=== PATIENT | female | born 1980 | race Caucasian/White ===

== ENCOUNTER → 2020-12-24 08:34 | Outpatient (CLI) | payer BC, SELFPAY | PROVIDERS: PCP Nurse Practitioner; Visit Provider Nurse Practitioner | DX: G47.10 Hypersomnia, unspecified (principal); R06.83 Snoring; R53.83 Other fatigue; G47.30 Sleep apnea, unspecified | CPT/HCPCS: G0399 ==

== ENCOUNTER 2021-04-26 08:59 | Emergency (ER) | payer BC, SELFPAY ==
[2021-04-26 09:18] VITALS: BP 141/89; PULSE 90; RESP 14; TEMP 36.7; O2SAT 99; BMI 36.0
--- NOTE | 2021-04-26 10:08 | HMH.EDUTC ---
[facility] [place] Clinical Impression: Sinusitis Qualifiers: Sinusitis location: unspecified location Chronicity: acute Recurrence: non-recurrent Qualified Code(s): J01.90 - Acute sinusitis, unspecified Otitis media Qualifiers: Otitis media type: suppurative Chronicity: acute Laterality: bilateral Recurrence: non-recurrent Spontaneous tympanic membrane rupture: without spontaneous rupture Qualified Code(s): H66.003 - Acute suppurative otitis media without spontaneous rupture of ear drum, bilateral Disposition: Home, Self-Care Condition on Discharge: Good Instructions: Middle Ear Infection, DI for Sinusitis Additional Instructions: Drink plenty of fluids. Take tylenol or ibuprofen for pain or fever. Take the medications as directed. Follow up with your regular doctor. GO TO THE ER FOR ANY WORSENING SYMPTOMS Prescriptions: Brompheniramine/Pseudoephed/Dm [Bromfed Dm Cough Syrup] 5 ml PO Q6HP PRN #240 ml PRN Reason: Cough Transmission Status: Received by [id number] methylPREDNISolone [Medrol] 4 mg PO DIRECTED 6 Days #21 packet Transmission Status: Received by [id number] Cefdinir [Omnicef 300mg Capsule] 300 mg PO BID #20 cap Transmission Status: Received by [id number] Referrals: Emelia Adams APRN [Primary Care Provider] - Time of Disposition: 10:14 Medical Decision Making - Medical Records Medical records reviewed: No: I reviewed the patient's medical records. - Rafael Inquiry Pt receiving controlled substance: No Vital Signs: 04/26/21 09:18 04/26/21 10:09 Temperature 98.1 F 98.1 F Temperature Source Oral Pulse Rate 90 Pulse Rate [Left] 90 Respiratory Rate 14 14 Blood Pressure 141/89 H Blood Pressure [Right Arm] 141/89 H Blood Pressure Mean [Right Arm] 106 02 Sat by Pulse Oximetry 99 [facility] [place] - General Stated complaint: headache,congestion Time Seen by Provider: 04/26/21 10:08 Mode of Arrival: Ambulatory Source of Information: Patient Limitations: No Limitations Description of Symptoms (Recalled from Triage Doc. by RN): pt c/o sinus congestion and sneezing. HEENT Symptoms (Recalled from RN notes): Yes (congestion/drainage and sneezing) Resp Symptoms (Recalled from RN notes): No Skin Symptoms (Recalled from RN notes): No MS Symptoms (Recalled from RN notes): No Functional Status (Recalled from RN notes): wnl - History of Present Illness Provider Complaint: She c/o 3 days of sinus congestion. - Related Data Home Medications Medication Instructions Recorded Confirmed ketotifen fumarate 0.025 % (0.035 1 drp OPHTHALMIC BID 09/17/17 %) eye drops loratadine 5 mg/5 mL oral solution 5 mg PO ONCE 09/17/17 Previous Rx's Medication Instructions Recorded gwuvvcomdghdvwn-ivliappbmcouyyx-SG 5 ml PO Q4-6H PRN #240 ml 09/17/17 2 mg-30 mg-10 mg/5 mL oral syrup Brompheniramine/Pseudoephed/Dm 5 ml PO Q6HP PRN #240 ml 04/26/21 [Bromfed Dm Cough Syrup] Cefdinir [Omnicef 300mg Capsule] 300 mg PO BID #20 cap 04/26/21 methylPREDNISolone [Medrol] 4 mg PO DIRECTED 6 Days #21 04/26/21 packet Allergies Allergy/AdvReac Type Severity Reaction Status Date / Time No Known Allergies Allergy Verified 09/17/17 16:35 - Worker's Comp Is this a Worker's Comp case?: No [facility] History - Hepatitis A Screen Drug use history?: No High risk sexual behaviors?: No History of sexually transmitted infection?: No Currently employed?: No Childcare worker?: No Do you have indoor plumbing?: Yes Do you have electricity?: Yes Attestation statement:: This patient has been screened for Hepatitis A risk factors. I have reviewed the patient's past medical history: Yes Other Surgeries: Yes: No Previous Surgery Amputation: No Fractures: No - Social History Smoking Status: Never smoker Alcohol Intake: never Occupational Status: student ROS Obtained: Yes All systems reviewed & no additional complaints - Constitutional Constituti
[2021-04-26 10:09] VITALS: BP 141/89; PULSE 90; RESP 14; TEMP 36.7
== END 2021-04-26 10:22 | disposition home or self-care (01) ==
PROVIDERS: Emergency Provider Nurse Practitioner Family; PCP Nurse Practitioner
DX: J01.90 Acute sinusitis, unspecified (principal); H66.003 Acute suppurative otitis media without spontaneous rupture of ear drum, bilateral
CPT/HCPCS: 99202; G0463

== ENCOUNTER → 2022-08-31 23:11 | Outpatient (CLI) | payer BC, SELFPAY ==
[2022-08-31 18:35] LABS: Eosinophils % 0.5 % (0.1-12.0); Hematocrit 41.4 % (37.0-47.0); Hemoglobin 13.3 g/dL (12.2-16.2); Lymphocytes # 1.6 K/mm3 (0.7-4.5); Lymphocytes % 37.5 % (10-50); Mean Corpuscular HGB Conc 32.3 g/dL (31.8-35.4); Mean Corpuscular Hemoglobin 30.1 pg (27.0-31.2); Mean Corpuscular Volume 93.2 fl (81-99); Monocytes # 0.2 K/mm3 (0.1-1.0); Monocytes % 5.2 % (1.7-9.3); Neutrophils # 2.4 K/mm3 (1.8-7.8); Neutrophils % 55.8 % (37.0-80.0); Platelet Count 231 K/mm3 (142-424); Red Blood Count 4.44 M/mm3 (4.20-5.40); White Blood Count 4.2 K/mm3 (4.8-10.8)
[2022-08-31 18:47] LABS: Alanine Aminotransferase 20 U/L (12-78); Albumin Level 4.3 g/dl (3.5-5.0); Albumin/Globulin Ratio 1.5 (1.1-1.8); Alkaline Phosphatase 50 U/L (38-126); Aspartate Amino Transferase 24 U/L (14-36); Bilirubin,Total 0.5 mg/dl (0.2-1.3); Blood Urea Nitrogen 11 mg/dl (7-17); Calcium 8.5 mg/dl (8.4-10.2); Carbon Dioxide 26 mmol/L (22.0-30.0); Chloride 107 mmol/L (98-107); Chol/HDL Ratio 4.3 (1-3.5); Cholesterol 192 mg/dl (140-200); Estimated Glomerular Filt Rate 79 ml/min (>60); GFR (African American) 95 ML/MIN (>60); Globulin 2.8 g/dL (1.3-3.2); Glucose 85 mg/dl (74-100); HDL Cholesterol 45 mg/dl (40-60); Sodium 140 mmol/L (136-145); Total Protein,Serum 7.1 g/dl (6.3-8.2); Triglycerides 135 mg/dl (30-150); VLDL Cholesterol 27 mg/dL (0-40)
[2022-08-31 18:58] LABS: Direct LDL Cholesterol 108.24 mg/dL (100-129)
[2022-08-31 19:03] LABS: Free T4 (Free Thyroxine) 0.87 ng/dl (0.78-2.19)
[2022-08-31 19:05] LABS: 25-OH Vitamin D, Total 22.3 ng/mL (30-100)
[2022-08-31 19:18] LABS: Thyroid Stimulating Hormone 4.72 uIU/mL (0.465-4.68)
[2022-08-31 19:37] LABS: Vitamin B12 268 pg/mL (239-931)
== END ==
PROVIDERS: PCP Nurse Practitioner; Visit Provider Nurse Practitioner
DX: E03.9 Hypothyroidism, unspecified (principal); E78.5 Hyperlipidemia, unspecified; E66.9 Obesity, unspecified; Z68.33 Body mass index [BMI] 33.0-33.9, adult; E55.9 Vitamin D deficiency, unspecified
CPT/HCPCS: 80053; 80061; 82306; 82607; 83036; 84439; 84443; 85025

== ENCOUNTER 2025-01-24 14:59 | Outpatient (CLI) | payer BC, SELFPAY ==
[2025-01-24 19:56] LABS: Hematocrit 36.9 % (37.0-47.0); Hemoglobin 11.6 g/dL (12.2-16.2); Immature Granulocytes % 0.2 %; Mean Corpuscular HGB Conc 31.4 g/dL (31.8-35.4); Mean Corpuscular Hemoglobin 27.2 pg (27.0-31.2); Mean Corpuscular Volume 86.6 fl (81-99); Nucleated Red Blood Cells % 0 %; Platelet Count 241 K/mm3 (142-424); Red Blood Count 4.26 M/mm3 (4.20-5.40); Red Cell Distribution Width-SD 50.9 fL; White Blood Count 5.3 K/mm3 (4.8-10.8)
[2025-01-24 20:46] LABS: Alanine Aminotransferase 25 U/L (12-78); Albumin Level 4.2 g/dl (3.5-5.0); Albumin/Globulin Ratio 1.4 (1.1-1.8); Alkaline Phosphatase 54 U/L (38-126); Anion Gap 11.2 mEq/L (5-15); Aspartate Amino Transferase 30 U/L (14-36); Bilirubin,Total 0.4 mg/dl (0.2-1.3); Blood Urea Nitrogen 14 mg/dl (7-17); Calcium 8.7 mg/dl (8.4-10.2); Carbon Dioxide 23 mmol/L (22.0-30.0); Chloride 106 mmol/L (98-107); Cholesterol 211 mg/dl (140-200); Creatinine,Serum 0.80 mg/dl (0.52-1.04); Estimated Glomerular Filt Rate 78 ml/min (>60); GFR (African American) 94 ML/MIN (>60); Globulin 2.9 g/dL (1.3-3.2); Glucose 88 mg/dl (74-100); HDL Cholesterol 59 mg/dl (40-60); Potassium 4.2 mmoL/L (3.5-5.1); Sodium 136 mmol/L (136-145); Total Protein,Serum 7.1 g/dl (6.3-8.2); Triglycerides 201 mg/dl (30-150)
[2025-01-24 21:07] LABS: 25-OH Vitamin D, Total 15.8 ng/mL (30-100)
[2025-01-24 21:11] LABS: Free T4 (Free Thyroxine) 0.70 ng/dl (0.78-2.19)
[2025-01-24 21:16] LABS: Thyroid Stimulating Hormone 4.78 uIU/mL (0.465-4.68)
[2025-01-24 21:35] LABS: Vitamin B12 232 pg/mL (239-931)
[2025-01-24 21:39] LABS: Hepatitis C Ab Qual. W/ RFX NEGATIVE (Negative)
--- OUTSIDE RECORDS SUMMARY | 2025-01-25 11:50 | XMS_ITS | Clinical Summary ---
Author Organization [facility] Address [address] [place] [address] Phone Care Team Providers Care Digital Campaign Manager Name Role Phone Gopal Perez MD Primary Care Provider [phone] Allergies No known active allergies Medications LEVOthyroxine (SYNTHROID) 50 mcg Oral Tablet Take 50 mcg by mouth daily. Active ergocalciferol, vitamin D2, (VITAMIN D2 ORAL) Take by mouth daily. Active Active Problems No known active problems Surgical History Surgery Date Site/Laterality Comments [place] GUIDED LUMBAR PUNCTURE DIAGNOSTIC 02/08/2018 [place] GUIDED LUMBAR PUNCTURE DIAGNOSTIC 02/08/2018 EDG XRAY Medical History Medical History Date Comments Hypothyroidism Headache Social History Tobacco Use Types Packs/Day Years Used Date Smoking Tobacco: Never Smokeless Tobacco: Never Alcohol Use Standard Drinks/Week Comments No 0 (1 standard drink = 0.6 oz pur e alcohol) Sexually Active Control Partners Comments Yes Male Comments No Sex and Gender Information Value Date Recorded Sex Assigned at Not on file Legal Sex Female 5:08 AM EDT Gender Identity Not on file Sexual Orientation Not on file Obstetrics History Para Term AB IAB SAB Ectopic Multiple Livin g Live Births 6 6 3 3 3 Date Outcome GA Total Labor Labor/2nd/3rd Weight Sex Type Anes PTL Lena A1 A5 Name Clin Para Para Para 2000 Term M Vag-S pont Living 2002 Term M Vag-S pont Living 2008 Term F Vag-S pont Living Last Filed Vital Signs Vital Sign Reading Time Taken Comments Blood Pressure 116/70 05/13/2023 8:29 AM EST Pulse 69 07/21/2018 8:50 AM EDT Temperature 36.8 C (98.2 F) 02/28/2020 11:07 AM EDT Respiratory Rate 16 07/21/2018 8:50 AM EDT Oxygen Saturation 97% 02/08/2018 1:00 PM EDT Inhaled Oxygen Concentration - - Weight 72 kg (158 lb 12.8 oz) 05/13/2023 8:29 AM EST Height 160 cm (5' 3 ) 05/13/2023 8:29 AM EST Body Mass Index 28.13 05/13/2023 8:29 AM EST Plan of Treatment Health Maintenance Due Date Last Done Comments Annual Wellness Exam 01/04/1983 DTaP/TDaP/Td (1 - Tdap) 01/04/1999 Hepatitis B Vaccine (1 of 3 - 19+ 3-dose series) 01/04/1999 HPV/Pap Cotest 01/04/2010 Breast Cancer Screening 2020 Cervical Cancer Screening 08/11/2021 Pap Smear 08/11/2021 08/11/2018, 06/10, 07/04/2015, Additional history exists Cologuard 01/04/2025 Colon Cancer Screening 01/04/2025 Colonoscopy 01/04/2025 FIT 01/04/2025 Sigmoidoscopy 01/04/2025 Virtual Colonography 01/04/2025 COVID-19 Vaccine ( - season) 2025 Influenza Vaccine (#1) 2025 , 05/06/2022, 04/12/2019, Additional history exists Meningococcal B Vaccine Aged Out No l onger eligible based on patient's age to complete this topic Pneumococcal Vaccine 0-49 Aged Out No longer eligible based on patient's age to complete this topic Additional Health Concerns 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
--- OUTSIDE RECORDS SUMMARY | 2025-01-25 11:50 | XMS_ITS | Clinical Summary ---
Author Organization [facility] Address [address] [place] [address] Care Team Providers Care Obgyn Specialist Name Role Phone Unavailable Primary Care Provider Unavailabl e Source Comments [facility] is fully rolled out with thefollowing exceptions:General Clinical Research [facility] Social History Tobacco Use Types Packs/Day Years Used Date Smoking Tobacco: Never Assessed Comments Unknown Sex and Gender Information Value Date Recorded Sex Assigned at Not on file Legal Sex Female 5:17 AM EST Gender Identity Not on file Sexual Orientation Not on file Plan of Treatment Health Maintenance Due Date Last Done Comments MMR IMMUNIZATION (1 of 1 - S tandard series) 01/04/1981 DTAP/Tdap/Td IMMUNIZATION (1 - Tdap) 01/04/1987 VARICELLA IMMUNIZATION (1 of 2 - 13+ 2-dose series) 01/04/1993 HEPATITIS B IMMUNIZATION (1 of 3 - 19+ 3-dose series) 01/04/1999 HPV IMMUNIZATION (1 - 3-dose SCDM series) 01/04/2007 AMB SEASONAL FLU VACCINE (#1) 01/07/2025 COVID-19 Vaccine ( - 2023-2 5 season) 2025 HIB IMMUNIZATION Aged Out No longer e ligible based on patient's age to complete this topic IPV IMMUNIZATION Aged Out No longer e ligible based on patient's age to complete this topic MCV4 IMMUNIZATION Aged Out No longer eligible based on patient's age to complete this topic MENINGOCOCCAL B VACCINE Aged Out No l onger eligible based on patient's age to complete this topic PNEUMOCOCCAL IMMUNIZATION Aged Out No longer eligible based on patient's age to complete this topic Respiratory Syncytial Virus (RSV) <20mo Aged Out No longer eligible b ased on patient's age to complete this topic
[2025-01-26 08:17] LABS: Hepatitis B Surface Antigen Negative (Negative)
== END 2025-01-24 23:59 | disposition home or self-care (01) ==
LOC: LAB.DROPOF 01-25 11:48
PROVIDERS: PCP Nurse Practitioner; Visit Provider Nurse Practitioner
DX: Z11.59 Encounter for screening for other viral diseases (principal); E78.5 Hyperlipidemia, unspecified; E53.8 Deficiency of other specified B group vitamins; E55.9 Vitamin D deficiency, unspecified; E03.9 Hypothyroidism, unspecified
CPT/HCPCS: 80053; 80061; 82306; 82607; 84439; 84443; 85025; 86803; 87340; 87389